=== PATIENT | female | born 1995 | race African-American/Black ===

== ENCOUNTER 2025-01-31 19:22 | Emergency (ER) | payer MEDICAID ==
[~2025-01-31] VITALS: Ht 175.3 cm; Wt 91.0 kg
[2025-01-31 19:45] VITALS: O2SAT 99
[2025-01-31] MEDS: LIDOCAINE 5% PATCH TOP SCH (21:38)
[2025-01-31] MEDS: DIAZEPAM 5 MG TABLET PO ONE (21:38)
[2025-01-31] MEDS: KETOROLAC 15MG/ML VIAL IM ONE (21:39)
[2025-01-31 22:01] VITALS: BP 118/62; PULSE 59; RESP 16; TEMP 36.8; O2SAT 100
[2025-01-31] MEDS ORDERED: DIAZ5TAB MT (22:03)
== END 2025-01-31 22:15 | disposition home or self-care (01) ==
LOC: ER 19:22
DX: M54.50 Low back pain, unspecified (principal); J45.909 Unspecified asthma, uncomplicated
CPT/HCPCS: 99283; 81025; 96372; J1885

== ENCOUNTER 2025-02-28 11:06 | Emergency (ER) | payer MEDICAID ==
[~2025-02-28] VITALS: Ht 172.7 cm; Wt 77.0 kg
[~2025-02-28 11:06] MED LIST: DIAZ5TAB MT
[2025-02-28 11:10] VITALS: O2SAT 99
[2025-02-28 11:39] LABS: BASOPHILS % 0.3 % (0.0-2.0); EOSINOPHILS % 0.9 % (0.0-5.0); HEMATOCRIT. 37.0 % (36.0-48.0); HEMOGLOBIN. 11.8 g/dL (12.0-16.0); LYMPHOCYTES % 23.7 % (20.0-50.0); MEAN PLATELET VOLUME 8.7 fl (7.4-10.4); MONOCYTES % 8.3 % (2.0-8.0); NEUTROPHILS % 66.8 % (40.0-76.0); PLATELET 227 x1000/uL (130-400); RED BLOOD CELL COUNT 4.88 mill/uL (4.2-5.4); RED CELL DISTRIBUTION WIDTH 14.9 % (11.6-14.6)
[2025-02-28 11:49] LABS: CREATININE 0.8 mg/dL (0.6-1.0); UREA NITROGEN BLOOD 10 mg/dL (9-23)
[2025-02-28 11:50] LABS: HCG SCREEN NEGATIVE
[2025-02-28 11:51] LABS: ASPARTATE AMINOTRANSFERASE 22 IU/L (<34); BILIRUBIN DIRECT 0.2 mg/dL (<=3.0)
[2025-02-28 11:52] LABS: BILIRUBIN TOTAL 0.7 mg/dL (0.1-1.0); PROTEIN TOTAL 7.0 g/dL (6.0-8.3)
[2025-02-28] MEDS: ONDANSETRON 4MG ODT PO ONE (12:33)
[2025-02-28] MEDS: METOCLOPRAMIDE HCL 10MG TABLET PO ONE (12:33)
[2025-02-28] MEDS: MAGNESIUM/ALUMINUM HYDROXIDE/SIMETHICONE 30ML UDC PO ONE (12:33)
[2025-02-28] MEDS: POTASSIUM CHLORIDE 20MEQ TABLET SR PO ONE (13:13)
[2025-02-28 15:00] LABS: CLARITY URINE CLEAR (CLEAR); COLOR URINE YELLOW (YELLOW); GLUCOSE URINE NEGATIVE (NEGATIVE); KETONES URINE TRACE (NEGATIVE); LEUKOCYTE ESTERASE URINE NEGATIVE (NEGATIVE); NITRITE URINE NEGATIVE (NEGATIVE); OCCULT BLOOD URINE NEGATIVE (NEGATIVE); PH URINE 6.0 (4.5-8.0); PROTEIN URINE NEGATIVE (NEGATIVE); SPECIFIC GRAVITY URINE 1.026 (1.005-1.030); UROBILINOGEN URINE 1.0 E.U./dL (0.2-1.0)
[2025-02-28] MEDS ORDERED: SUCR1TAB MT (15:15)
[2025-02-28 15:37] VITALS: BP 136/81; PULSE 64; RESP 18; TEMP 36.7; O2SAT 99
[2025-02-28] MEDS ORDERED: LIDOCAINE HCL 1% 20ML VIAL INFIL ONE (15:45)
[2025-02-28] MEDS ORDERED: CEFTRIAXONE SODIUM 500MG VIAL IM ONE (15:45)
[2025-02-28] MEDS ORDERED: DOXYCYCLINE HYCLATE 100MG CAPSULE PO ONE (15:45)
[2025-03-04 04:12] LABS: CHLAMYDIA TRACHOMATIS NAA Negative (Negative); NEISSERIA GONORRHOEAE NAA Negative (Negative)
[2025-03-04 04:12] LABS: HSV TYPE 2 SPECIFIC AB IGG Non Reactive (Non Reactive)
== END 2025-02-28 15:39 | disposition home or self-care (01) ==
LOC: ER 11:06
DX: R10.84 Generalized abdominal pain (principal); I10 Essential (primary) hypertension; J45.909 Unspecified asthma, uncomplicated
CPT/HCPCS: 99284; 74176; 86695; 86696; 87491; 87591; 80076; 80048; 81003; 84703; 83690; 85025; 36415; J8597; Q0162